=== PATIENT | female | born 1980 | race Caucasian/White ===

== ENCOUNTER 2018-09-07 06:08 | Emergency (ER) | payer OTHER ==
[~2018-09-07] VITALS: Ht 170.2 cm; Wt 68.0 kg
[~2018-09-07 06:08] MED LIST: BACTROBAN22 GM TP; CIPROFLOXACIN500 M1 PO; FLAGYL500 MG PO; IBUPROFEN 600600 M1 PO; KEFLEX500 MG PO; NORCO 5-325 TA1 EACH PO; ZOFRAN4 MG PO
[2018-09-07] MEDS ORDERED: RISPERDAL0.25 MG PO (06:23)
[2018-09-07] MEDS ORDERED: GENTAK5 ML INTRAOCULR (06:42)
[2018-09-07] MEDS ORDERED: KEFLEX500 M1 PO (06:42)
[2018-09-07] MEDS ORDERED: HYDROCODONE-AP1 EAC6 PO (06:42)
[2018-09-07 06:55] VITALS: BP 122/83
== END 2018-09-07 06:56 | disposition home or self-care (01) ==
LOC: M.ERS 06:08
DX: S01.111A Laceration without foreign body of right eyelid and periocular area, initial encounter (principal); Z90.49 Acquired absence of other specified parts of digestive tract; Z91.040 Latex allergy status; Z88.8 Allergy status to other drugs, medicaments and biological substances; W54.0XXA Bitten by dog, initial encounter; Y93.89 Activity, other specified; Y92.89 Other specified places as the place of occurrence of the external cause; Y99.8 Other external cause status